=== PATIENT | female | born 1940 | race Caucasian/White ===

== ENCOUNTER 2020-01-28 17:51 | Emergency (ER) | payer MEDICARE, SELFPAY ==
--- NOTE | ~2020-01-28 | XR_ITS ---
EXAMINATION: XR chest 2V DATE: 01/28/2020 18:36 INDICATION: Shortness of breath and dizziness TECHNIQUE: AP and lateral views of the chest are obtained. COMPARISON: None available FINDINGS: The lungs are free of acute opacities. There is no pleural effusion or pneumothorax. A calc ified nodule of the right upper lobe is consistent with old granulomatous disease. The cardiomediasti nal silhouette is normal. There is mild thoracic spondylosis. Surgical clips are noted in the right b reast and right axilla. IMPRESSION: 1. No acute cardiopulmonary abnormality. Reviewed, dictated and finalized at location A.
[2020-01-28 17:56] VITALS: BP 130/71; PULSE 103; RESP 14; TEMP 36.7; O2SAT 94
--- NOTE | 2020-01-28 17:59 | ECG_ITS ---
Measurements Intervals [place] Rate: 96 P: 34 RI: 150 QRS: 21 QRSD: 86 T: 45 QT: 347 QTc: 440 Interpretive Statements SINUS RHYTHM EARLY PRECORDIAL R/S TRANSITION BASELINE ARTIFACT- I, II, AVR, AVL BORDERLINE ECG Electronically Signed On 01-28-2020 20:13:34 CDT by Oumar Espinoza D.O.
[2020-01-28 18:29] LABS: Basophils Percent Auto 0.6 % (0.2-1.2); Eosinophils Absolute Auto 0.1 K/mm3 (0-0.3); Eosinophils Percent Auto 1.9 % (0-4.4); Hematocrit 34.7 % (37.0-47.0); Hemoglobin 11.4 g/dL (12.0-15.0); Immature Granulocyte Absolute 0.01 K/mm3 (0.00-0.031); Immature Granulocyte Percent A 0.2 % (0-0.5); Lymphocytes Absolute Auto 1.08 K/mm3 (0.9-3.2); Lymphocytes Percent Auto 20.1 % (18.3-44.2); Mean Corpuscular HGB Conc 32.9 g/dl (32-36); Mean Corpuscular Hemoglobin 29.5 pg (26-34); Mean Corpuscular Volume 89.9 fl (80-100); Mean Platelet Volume 9.7 fl (7.4-10.4); Monocytes Absolute Auto 0.4 K/mm3 (0.1-0.6); Monocytes Percent Auto 7.3 % (2.6-8.5); Neutrophils Absolute Auto 3.8 K/mm3 (1.3-6.7); Neutrophils Percent Auto 69.9 % (45.5-73.1); Platelet Count Result 236 k/mm3 (150-375); Red Blood Count 3.86 M/mm3 (4.2-5.4); Red Cell Distribution Width 12.9 % (11.5-14.5); White Blood Count 5.4 K/mm3 (4.5-10.0)
[2020-01-28 18:45] LABS: Alanine Aminotransferase 23 U/L (4-35); Alkaline Phosphatase 66 U/L (38-126); Anion Gap 11.8 mmol/L (7-16); Aspartate Amino Transferase 32 U/L (14-36); Bilirubin,Total 0.2 mg/dL (0.2-1.3); Blood Urea Nitrogen 26 mg/dL (7-17); Calcium 8.2 mg/dL (8.4-10.2); Carbon Dioxide 29 mmol/L (22-30); Chloride 99 mmol/L (98-107); Estimated CRCL calculation 66 ml/min; Estimated Glomerular Filt Rate > 60; Glucose 112 mg/dL (65-105); Potassium 3.8 mmol/L (3.4-5.0); Sodium 136 mmol/L (137-145)
[2020-01-28 19:07] VITALS: BP 117/70; PULSE 97; RESP 22; O2SAT 96
[2020-01-28 19:44] LABS: Add Urine Microscopic? YES; Appearance Urine Clear (Clear); Bilirubin Urine Negative (Negative); Blood Urine Negative (Negative); Color Urine Yellow (Yellow); Glucose Urine UA Negative (Negative); Ketones Urine Negative (Negative); Leukocyte Esterase Ur Trace LEU/UL (Negative); Mucus Urine Rare /lpf; Nitrate Urine Negative (Negative); Protein Urine Negative (Negative); Specific Grav Ur 1.026 (1.001-1.035); Squamous Epithelial Cell Urine Rare /hpf (Few); Urobilinogen Urine Negative mg/dL (<2.0)
--- NOTE | 2020-01-28 19:54 | ED.DIZZY ---
HPI - Dizziness General Chief Complaint: Dizziness Stated Complaint: sob Time Seen by Provider: 01/28/20 19:07 History of Present Illness HPI Narrative: Patient is a 79-year-old female who presents ER with dizziness. Began around 3 PM. She had gotten up from her recliner to go to the bathroom when she started feeling dizzy and lightheaded. She had a bowel movement went back to her recliner and symptoms persisted. She reports slight improvement now but is still present. No fevers or chills or sweats. She has had sinus congestion for the last 2 weeks no fevers or chills or productive cough. No known sick contacts. Denies COVID exposure. She reports she currently has dry mouth. No focal weakness in arm or leg. No numbness or tingling. Reports she has some mild shortness of breath related to this dizziness. She endorses ear pressure. Related Data Allergies Allergy/AdvReac Type Severity Reaction Status Date / Time No Known Allergies Allergy Verified 01/28/20 18:01 Review of Systems Review of Systems: All systems reviewed & are unremarkable except as noted in HPI and below Constitutional: Constitutional: Denies chills and Denies fever(s) ENT: Reports vertigo, Reports nasal congestion and Denies sore throat Cardiovascular: Cardiovascular: Denies chest pain, Denies rapid heart rate and Denies radiating jaw, neck or arm pain Respiratory: Respiratory: Denies cough, Reports dyspnea and Denies wheezing Gastrointestinal: Gastrointestinal: Denies abdominal pain, Denies diarrhea, Denies nausea and Denies vomiting Neurologic: Denies syncope, Denies focal weakness and Denies numbness PMFSH Past Medical History Medical History (Updated 01/28/20 @ 21:32 by Jeramy Stanton MD) Breast cancer Surgical History Surgical History (Updated 01/28/20 @ 19:57 by Jeramy Stanton MD) H/O lumpectomy History of right hip replacement Social History Social History (Updated 01/28/20 @ 19:57 by Jeramy Stanton MD) Smoking status: Never smoker Gender identity (if verbalized by the patient): Female Exam Narrative: Exam Narrative: GENERAL: Well-appearing, well-nourished, and in no acute distress. HEAD: Normocephalic, atraumatic. EYES: PERRL and EOMI. ENT: TMs normal, ear canals free of cerumen. CHEST: Clear to auscultation. No respiratory distress. HEART: Regular rate and rhythm. Normal peripheral pulses. ABDOMEN: Soft, nontender, nondistended. EXTREMITIES: Normal range of motion. No edema. NEURO: Clear speech, no upper or lower extremity drift. Ambulates with steady gait while using a walker. Alert and oriented x3. PSYCH: Normal mood and affect. Course Course Emergency Course: Patient resting comfortably. Ambulatory without issues. Dizziness improved with meclizine. Discharge home. Vital Signs Vital signs: Vital Signs Temperature 98.1 F 01/28/20 17:56 Pulse Rate 103 H 01/28/20 17:56 Respiratory Rate 14 01/28/20 17:56 Blood Pressure 130/71 01/28/20 17:56 Pulse Oximetry 94 01/28/20 17:56 Temperature 98.1 F 01/28/20 17:56 Pulse Rate 94 01/28/20 19:58 Respiratory Rate 18 01/28/20 19:58 Blood Pressure 133/77 01/28/20 19:58 Pulse Oximetry 95 01/28/20 19:58 MDM - Dizziness Lab Data Result diagrams: 01/28/20 18:22 01/28/20 18:22 Labs: Lab Results 01/28/20 01/28/20 01/28/20 Range/Units 18:22 18:22 19:33 WBC 5.4 (4.5-10.0) K/mm3 RBC 3.86 L (4.2-5.4) M/mm3 Hgb 11.4 L (12.0-15.0) g/dL Hct 34.7 L (37.0-47.0) % MCV 89.9 (80-100) fl MCH 29.5 (26-34) pg MCHC 32.9 (32-36) g/dl RDW 12.9 (11.5-14.5) % Plt Count 236 (150-375) k/mm3 MPV 9.7 (7.4-10.4) fl Immature Gran % (Auto) 0.2 (0-0.5) % Neut % (Auto) 69.9 (45.5-73.1) % Lymph % (Auto) 20.1 (18.3-44.2) % Larue % (Auto) 7.3 (2.6-8.5) % Eos % (Auto) 1.9 (0-4.4) % Baso % (Auto) 0.6 (0.2-1.2) % Lymph # (Auto) 1.08
[2020-01-28 19:58] VITALS: BP 133/77; PULSE 94; RESP 18; O2SAT 95
[2020-01-28] MEDS: SODIUM CHLORIDE 0.9% IV 1,000 ML 999 ML IV CONT (19:58)
[2020-01-28] MEDS: MECLIZINE HCL 25 MG TABLET PO (19:58)
--- NOTE | 2020-01-28 21:11 | PC.NURSE ---
Pt up to ambulate on pulse ox. Pt denies any vertigo and pulse ox didnt drop below 96%.
[2020-01-28 21:50] VITALS: BP 108/77; PULSE 77; RESP 18; O2SAT 98
== END 2020-01-28 21:50 | disposition home or self-care (01) ==
PROVIDERS: Emergency Medicine; Emergency Provider Emergency Medicine
DX: H81.10 Benign paroxysmal vertigo, unspecified ear (principal); Z85.3 Personal history of malignant neoplasm of breast; Z96.641 Presence of right artificial hip joint; R94.31 Abnormal electrocardiogram [ECG] [EKG]
CPT/HCPCS: 36415; 71046; 80053; 81001; 85025; 93005; 96360; 99284; A9270; J7030

== ENCOUNTER 2021-04-14 16:38 | Outpatient (CLI) | payer MEDICARE, SELFPAY ==
--- NOTE | ~2021-04-14 | XR_ITS ---
EXAMINATION: XR chest 2V DATE: 04/14/2021 17:20 INDICATION: Malignant neoplasm of central portion of left breast. Preop. TECHNIQUE: Frontal and lateral views of the chest were obtained. COMPARISON: Chest 2 views 01/28/2020 FINDINGS: A calcified right lung nodule is consistent with old granulomatous disease. No pleural effu shaista or pneumothorax. Surgical clips overlie right chest. There are changes of posterior fusion proce dure in lumbar spine. IMPRESSION: 1. No acute cardiopulmonary disease. Reviewed, dictated and finalized at location A.
== END 2021-04-14 16:39 | disposition home or self-care (01) ==
DX: Z01.818 Encounter for other preprocedural examination (principal)
CPT/HCPCS: 71046

== ENCOUNTER 2022-01-22 09:22 | Emergency (ER) | payer MEDICARE, SELFPAY ==
--- NOTE | 2022-01-22 09:26 | ED.URI ---
HPI - URI/Sore Throat General Chief Complaint: Upper Respiratory Infection Stated Complaint: TIRED/BODY ACHES/SINUS DRAINAGE/SORE THROAT/COUGH Time Seen by Provider: 01/22/22 09:26 Source: patient, family and RN notes reviewed History of Present Illness HPI Narrative: Patient is a 81-year-old female who presents the urgent care with complaints of sore throat, cough, body aches, sinus drainage. Patient states that it started on Saturday and she has been taking Tylenol arthritis. Denies any fevers, nausea, vomiting or shortness of breath. Patient states that she possibly had a COVID exposure last Saturday . Patient has not had COVID in the past. States that she did not use an at home COVID test because her daughter who is a nurse told her that they are not accurate and to get a different one . No other acute complaints. No acute distress noted. Patient aware of the plan of care. Some parts of this dictation were generated by voice recognition software and may contain typographical and/or grammatical inaccuracies. Related Data Home Medications Medication Instructions Recorded Confirmed aspirin 81 mg capsule 81 mg PO DAILY 01/22/22 01/22/22 atorvastatin 10 mg tablet 10 mg PO DAILY 01/22/22 01/22/22 cholecalciferol (vitamin D3) 1,250 1,250 mcg PO WEEKLY 01/22/22 01/22/22 mcg (50,000 unit) tablet duloxetine 20 mg capsule,delayed 20 mg PO BID 01/22/22 01/22/22 release fexofenadine 60 mg-pseudoephedrine 1 tablet PO Q12H 01/22/22 01/22/22 ER 120 mg tablet,ext.release,12 hr gabapentin 400 mg capsule 400 mg PO DAILY 01/22/22 01/22/22 metformin 500 mg tablet 500 mg PO DAILY 01/22/22 01/22/22 tramadol 50 mg tablet 50 mg PO Q4-6H 01/22/22 01/22/22 Allergies Allergy/AdvReac Type Severity Reaction Status Date / Time No Known Allergies Allergy Verified 01/22/22 09:38 Review of Systems Review of Systems: CONSTITUTIONAL: Denies fever, chills, or sweats. EYES: Denies visual changes, redness, or discharge. ENT: Reports of sinus drainage, sinus congestion, sore throat CARDIOVASCULAR: Denies chest pain, palpitations, or edema. RESPIRATORY: Reports of cough GASTROINTESTINAL: Denies abdominal pain, nausea, vomiting, or diarrhea. GENITOURINARY: Denies dysuria or hematuria. SKIN: Denies rash or itching. MUSCULOSKELETAL: Denies back pain, joint pain. Reports of body aches NEUROLOGIC: Denies headache, numbness, or weakness. All other systems reviewed are negative, except as documented in HPI. [facility] Past Medical History Medical History (Updated 01/22/22 @ 09:46 by OLGA Augustin) Breast cancer Surgical History Surgical History (Updated 01/28/20 @ 19:57 by Jeramy Stanton MD) H/O lumpectomy History of right hip replacement Social History Social History (Updated 01/28/20 @ 19:57 by Jeramy Stanton MD) Smoking status: Never smoker Gender identity (if verbalized by the patient): Female Comments At the time of my signature, I reviewed and agree with the nursing past medical, surgical, social, and family history. There is no relevant family history pertinent to the patient complaint. Exam Narrative: GENERAL: This is a well-nourished, well-developed patient, in no apparent distress. HEAD: normocephalic, atraumatic. EYES: PERRL. Sclera clear/white. Vision is grossly intact. EARS: External ears normal, auditory canals clear and without drainage, TMs normal without perforation. Hearing grossly intact. NOSE: External nose normal with no obvious nasal discharge, nares without redness, clear rhinorrhea. THROAT: Mucous membranes moist, posterior pharynx clear. Moderate postnasal drainage NECK: Neck supple, non-tender without lymphadenopathy CARDIOVASCULAR: Regular rate and rhythm without murmurs, gallops, or rubs. RESPIRATORY: Inspiratory wheezes throughout SKIN: warm, intact with no suspicious lesions or rash, good texture and turgor. NEURO: awake, alert, and oriented to person, place and time. There were no
[2022-01-22 09:31] VITALS: BP 136/87; PULSE 101; RESP 16; TEMP 36.7; O2SAT 97
[2022-01-22 19:47] LABS: SARS-CoV-2 RNA PCR Positive
== END 2022-01-22 09:52 | disposition home or self-care (01) ==
PROVIDERS: Emergency Provider Nurse Practitioner Family
DX: U07.1 COVID-19 (principal); Z85.3 Personal history of malignant neoplasm of breast; Z96.641 Presence of right artificial hip joint
CPT/HCPCS: 99213; C9803; G0463; U0003; U0005